=== PATIENT | female | born 1945 | race Caucasian/White ===

== ENCOUNTER 2017-03-25 12:55 | Emergency (ER) | payer MEDICARE, OTHER ==
[2017-03-25 13:13] VITALS: BP 136/83
--- NOTE | 2017-03-25 14:55 | ERNOTE ---
Lower Extremity HPI - General Lower Extremities Pain: thigh: left Time Seen by Provider: 03/25/17 14:37 Source: patient Exam Limitations: no limitations - Immun/Allergies/Home Medications Immunizations: IMMUNIZATION HX History of Influenza Vaccine Yes Hx Pneumococcal Vaccination No Allergies/Adverse Reactions: Allergies Allergy/AdvReac Type Severity Reaction Status Date / Time acetaminophen Allergy Verified 03/25/17 13:13 [From Darvocet-N] propoxyphene napsylate Allergy Verified 03/25/17 13:13 [From Darvocet-N] Home Medications: HOME MEDICATIONS Aspirin 81 mg PO DAILY 11/07/15 [Last Taken Unknown] Atenolol [Tenormin] 100 mg PO DAILY 11/07/15 [Last Taken Unknown] Calcium Carb, Citrate/Vit D3 [Calcium + D3 ER Tablet] 1 each PO DAILY 11/07/15 [ Last Taken Unknown] Fish Oil 11/07/15 [Last Taken Unknown] Gabapentin 300 mg PO QID 11/07/15 [Last Taken Unknown] HYDROcodone/ACETAMINOPHEN [[place] 5-325] 1 each PO PRN 11/07/15 [Last Taken Unknown] Levothyroxine Sodium [Tirosint] 88 mcg PO DAILY 11/07/15 [Last Taken Unknown] Losartan Potassium [Cozaar] 100 mg PO DAILY #14 tab 11/07/15 [Last Taken Unknown ] Multivitamins [Multivitamin Michael] 1 cap PO DAILY 11/07/15 [Last Taken Unknown] Simvastatin [Zocor] 20 mg PO HS 11/07/15 [Last Taken Unknown] Vitamin E 200 unit PO DAILY 11/07/15 [Last Taken Unknown] tiZANidine HCL [Tizanidine HCl] 2 mg PO HS 11/07/15 [Last Taken Unknown] Naproxen [Naprosyn] 500 mg PO BID #60 tablet 03/25/17 [Last Taken Unknown] - History of Present Illness Narrative: Patient presents with pain in the left knee as well as the medial portion of the left thigh. Onset was several days ago and patient presents to the emergency department to make sure nothing serious going on. Occurred: other Location of Incident: home Method of Injury: Reports: no apparent injury Loss of Consciousness: Reports: no loss of consciousness Associated Symptoms: Reports: none Other Injuries: Reports: none Review of Systems - Review of Systems Constitutional: Present: See HPI EYE: Present: no symptoms reported ENT: Present: no symptoms reported Respiratory: Present: no symptoms reported Cardiology: Present: no symptoms reported Gastrointestinal/Abdominal: Present: no symptoms reported Genitourinary: Present: no symptoms reported, hematuria Musculoskeletal: Present: no symptoms reported, See HPI Skin: Present: no symptoms reported Neurological: Present: no symptoms reported Endocrine: Present: no symptoms reported Hematologic/Lymphatic: Present: no symptoms reported Psych: Present: no symptoms reported - Patient's Past Medical History Patient History - Medical: Chronic Pain, GERD, Other Patient History - Cardiac/Respiratory: No pertinent hx Patient History - Cancer: No Hx of Cancer Patient History - Surgical Procedures: Cataracts, Colonoscopy, EGD, Hysterectomy , Tubal Ligation, Other - Social History Living Situations: spouse Smoking Status: Never smoker Have you smoked in the past 12 months: No Alcohol Use: none Drug Use: none - Immunizations Hx Pneumococcal Vaccination: No History of Influenza Vaccine: Yes Physical Exam - Physical Exam General Appearance: Present: wd/wn, alert, mild distress Head Exam: Present: normal inspection Eye Exam: Normal inspection: bilateral, PERRL: bilateral Ears, Nose, Throat: Present: normal ENT inspection, H, normal pharynx Neck: Present: normal inspection, nontender Respiratory: Present: no respiratory distress, normal breath sounds, no accessory muscle use, chest nontender, lungs clear Cardiovascular/Chest: Present: regular rate, rhythm, no murmur, normal peripheral pulses Gastrointestinal/Abdominal: Present: normal bowel sounds, nontender, nondistended, soft, no organomegaly Rectal Exam: Present: deferred Back Exam: Present: normal inspection, normal range of motion Extremity Exam: Present: normal range of motion, no edema, other - patient has tenderness along the medial thigh on the left down to the knee region, somewhat along the distribution of the gracilis muscle Neurological Exam: Present: alert, oriented, normal mood/affect Skin Exam: Present: normal color, warm/dry Lymphatic Exam: Present: no adenopathy ED Progress - Results and Orders Patient's Lab Results:: I have reviewed the patient's lab results. - Vital Signs Patient's Vital Signs:: I have reviewed the patient's vital signs. Vital Signs: Vital Signs 03/25/17 13:09 Temperature 36.7 C Pulse Rate 67 Respiratory 14 Rate Blood Pressure 136/83 O2 Sat by Pulse 95 Oximetry - X-Ray X-Ray #1 X-Ray: knee Interpretation: Reviewed by me - CT/Ultrasound CT/Ultrasound Narrative: Ultrasound of the left leg was reviewed by me - Progress/Reassessment Chief Complaint: Lower Extremity Pain/ Injury Plan - Plan Plan: I suspect the patient has a Phan's cyst in the left knee which is complicated by spasm and the results muscle. However for the patient back to her family doctor for an MRI of the left knee was without contrast to rule out more comfort care pathology in the knee. Departure Clinical Impression: Muscle spasm Phna's cyst of knee Qualifiers: Laterality: left Qualified Code(s): M71.22 - Synovial cyst of popliteal space [ Phan], left knee - Departure Disposition: Home self-care Condition: Good Instructions: Muscle Cramps and Spasms, [id number], Phan Cyst Referrals: Ally Lua MD [Primary Care Provider] - Prescriptions: Naproxen [Naprosyn] 500 mg PO BID #60 tablet
== END 2017-03-25 15:20 | disposition home or self-care (01) ==
LOC: ER 12:55
DX: M62.838 Other muscle spasm (principal); M71.22 Synovial cyst of popliteal space [Baker], left knee; M79.605 Pain in left leg